=== PATIENT | female | born 1960 | race Caucasian/White ===

== ENCOUNTER 2017-02-08 12:10 | Emergency (ER) | payer OTHER ==
[~2017-02-08] VITALS: Ht 152.4 cm; Wt 84.8 kg
--- NOTE | ~2017-02-08 | CT71 ---
[facility] A Service [facility] RADIOLOGY TEXT RESULTS PATIENT: SANDOVAL FORMAN LOCATION: DENIZ : 58 UNIT #: [id number] AGE: [address]: Endy Burger MD SEX: F ORDER DR: [id number] [facility] [address] [facility]. [place], [place] [address] [id number] MR#: [id number] Acc #: [id number] NAME: SANDOVAL FORMAN : 1960 SEX: F STUDY DATE/TIME: 02/08/2017 16:55 UNIT: DENIZ ROOM: STUDY DESCRIPTION: CT Head Wo Contrast Attending Physician: Endy Burger Ordering Physician: Ed Claudio Rodriguez M.D. Primary Care Physician: Ange Bruno M.D. MEDICAL IMAGING REPORT This report is preliminary unless electronic signature is present EXAM Noncontrast head CT HISTORY Headaches x2 days, syncopal episode today. TECHNIQUE This CT exam was performed with one or more of the following radiation dose reduction techniques: automatic exposure control, adjustment of mA and/or kV according to patient size, and iterative reconstruction. FINDINGS Axial noncontrast images were obtained from the skull base to the vertex. Ventricular size and configuration are normal. There is no evidence of acute infarct or hemorrhage. There are no extra-axial fluid collections. No mass lesion or mass effect is seen. There are no skull fractures. IMPRESSION Normal noncontrast head CT. Dictated by... Ignacia Mathews M.D. THIS IS AN ELECTRONICALLY VERIFIED REPORT Ignacia Mathews M.D. at 02/09/2017 2:20 PM CHAR/milena TD: 02/08/2017 21:51 JOB #: [id number] MEDICAL IMAGING REPORT [facility] A Service [facility] RADIOLOGY TEXT RESULTS PATIENT: SANDOVAL FORMAN LOCATION: DENIZ : 58 UNIT #: [id number] AGE: [address]: Endy Burger MD SEX: F ORDER DR: Page 1 of 1 COPY
--- NOTE | ~2017-02-08 | EKG ---
PATIENT: SANDOVAL FORMAN UNIT #: [id number] Ventricular Rate: 65 BPM Atrial Rate: 65 BPM P-R Interval: 162 ms QRS Duration: 86 ms Q-T Interval: 404 ms QTC Calculation(Bezet): 420 ms P [place]: 49 degrees Calculated R [place]: -26 degrees Diagnosis Line: Normal sinus rhythm Diagnosis Line: Minimal voltage criteria for LVH, may be normal Diagnosis Line: variant Diagnosis Line: Nonspecific T wave abnormality Diagnosis Line: Borderline ECG Diagnosis Line: When compared with ECG of 16-APR-2014 11:11, Diagnosis Line: No significant change was found Diagnosis Line: Confirmed by ROMEO DENNEY MD ([id number]) on 02/09/2017 Diagnosis Line: 7:15:16 PM INTERPRETING MD: ОЛЕГ ZAMORA
[~2017-02-08 12:10] MED LIST: ALDACTAZIDE PO; LEXAPRO PO; LIOTHYRONINE; SYNTHROID PO; WATER PILL; [UNRECOGNIZED DRUG - OTHER]; [UNRECOGNIZED DRUG - OTHER]
[2017-02-08 13:52] LABS: ALBUMIN SERUM 4.1 g/dL (3.5-5.0); BILIRUBIN,TOTAL 0.6 mg/dL (0.2-2.0); BUN/CREATININE RATIO 22.85; CALCIUM SERUM 9.5 mg/dL (8.4-10.2); CREATININE SERUM 0.7 mg/dL (0.6-1.4); GLOM FILT RATE Estimated 96.2 mL/min (>60); POTASSIUM 4.2 mmol/L (3.5-5.1); PROTEIN TOTAL SERUM 7.6 g/dL (6.0-8.3)
[2017-02-08 14:43] LABS: HEMATOCRIT 41.9 % (35.0-45.0); HEMOGLOBIN 13.8 gm/dL (12.0-16.0); MEAN CELL VOLUME 85.1 FL (83-96); MEAN CORPUSCULAR HGB CONC 32.9 g/dL (30-36); PLATELET COUNT 227 X10e3 (140-420); RED BLOOD COUNT 4.93 X10e (3.90-5.30); RED CELL DISTRIBUTION WIDTH 14.1 % (11.0-15.5); WHITE BLOOD COUNT 10.7 X10e3 (4.0-10.5)
[2017-02-08 14:44] LABS: BASOPHIL# 0.2 X10e3 (0-0.3); BASOPHIL% 1.5 % (0-2.5); DIFF IND NO; EOSINOPHIL# 0.1 X10e3 (0-0.7); LYMPHOCYTE# 2.5 X10e3 (1.0-3.5); LYMPHOCYTE% 23.1 % (17.0-45.0); MEAN PLATELET VOLUME 9.6 FL (6.5-11.5); MONOCYTE# 0.6 X10e3 (0-1.0); MONOCYTE% 5.6 % (3.0-12.0); NEUTROPHIL# 7.4 X10e3 (1.5-7.1); NEUTROPHIL% 68.8 % (40-75)
[2017-02-08 15:12] LABS: POC - CKMB 1.2 ng/mL (0.0-7.9); POC - TROPONIN <0.05 ng/mL (<=0.05)
[2017-02-08 15:30] LABS: POC - CKMB 1.1 ng/mL (0.0-7.9); POC - TROPONIN <0.05 ng/mL (<=0.05)
[2017-02-08 16:00] LABS: URINE APPEARANCE CLEAR; URINE BILIRUBIN NEG (NEG); URINE BLOOD NEG (NEG); URINE COLOR YELLOW; URINE GLUCOSE NEG (NEG); URINE KETONE NEG (NEG); URINE LEUKOCYTE ESTERASE NEG (NEG); URINE NITRATE NEG (NEG); URINE PH 5.5 (5-8); URINE PROTEIN NEG (NEG); URINE SOURCE CLEAN CATCH; URINE SPECIFIC GRAVITY 1.008 (1.003-1.035); URINE UROBILINOGEN 0.2 MG/DL (NEG)
[2017-02-08 16:01] LABS: CULTURE INDICATED? NO
== END 2017-02-08 17:55 | disposition home or self-care (01) ==
LOC: CED 12:10
PROVIDERS: Emergency Medicine; Student in an Organized Health Care Education/Training Program
DX: R55 Syncope and collapse (principal); F32.9 Major depressive disorder, single episode, unspecified; Z90.710 Acquired absence of both cervix and uterus; Z90.49 Acquired absence of other specified parts of digestive tract
CPT/HCPCS: 36415; 70450; 80053; 81003; 82553; 84484; 85025; 93005; 96361; 96374; 96375; 99285; J1885; J2765

== ENCOUNTER → 2017-02-28 | Outpatient (CLI) | payer OTHER ==
--- NOTE | ~2017-02-28 | HM ---
Unit #: [id number] #: [id number] Patient: SANDOVAL FORMAN [id number] [address] [place], [place] [address] [id number] O MR#: [id number] NAME: SANDOVAL FORMAN : 1960 SEX: F STUDY DATE/TIME: 03/08/2017 UNIT: [facility] ROOM: STUDY DESCRIPTION: Holter monitor Attending Physician: Ange Bruno M.D. Referring Physician: Ange Bruno M.D. Primary Care Physician: Ange Bruno M.D. CARDIOLOGY REPORT EXAM Holter monitor. DATE APPLIED February 28, 2017. DATE SCANNED March 07, 2017. ORDERED BY Ange Bruno M.D. READ BY [facility], Ghassan Baez M.D. INDICATION Syncope. COMMENTS 1. Basic rhythm is normal sinus rhythm. Total beats 120,885. Average heart rate 84 per minute. Heart rate varies from 56 per minute at 11:35 to 161 per minute at 1960. 2. 171 isolated PVCs noted. 3. No significant atrial arrhythmias noted. 4. No high-degree AV blocks noted. 5. No diary with symptoms available. Dictated by... Aysha Zambrano/aric TD: 03/09/2017 09:14 JOB #: [id number] Unit #: [id number] #: [id number] Patient: SANDOVAL FORMAN CARDIOLOGY REPORT Page 1 of 1 X Ghassan Baez MD HOLTER MONITOR REPORT
--- NOTE | ~2017-02-28 | US37 ---
[facility] A Service of [facility] RADIOLOGY TEXT RESULTS PATIENT: SANDOVAL FORMAN LOCATION: [facility] : 58 UNIT #: [id number] AGE: [address]: Ange Bruno MD SEX: F ORDER DR: [id number] [facility] [address] [facility]. [place], [place] [address] [id number] O MR#: [id number] Acc #: [id number] NAME: SANDOVAL FORMAN : 1960 SEX: F STUDY DATE/TIME: 02/28/2017 10:58 UNIT: [facility] ROOM: STUDY DESCRIPTION: US Carotid W/Doppler Bilateral Attending Physician: Ange Bruno M.D. Referring Physician: Ange Bruno M.D. Ordering Physician: Ange Bruno M.D. Primary Care Physician: Ange Bruno M.D. MEDICAL IMAGING REPORT This report is preliminary unless electronic signature is present EXAM Carotid Doppler, 02/28/2017 CLINICAL HISTORY Dizziness and syncope and loss of balance with blurred vision for 3 months. PROCEDURE Nowak-scale imaging, color-Doppler flow imaging and Doppler waveform analysis. COMPARISON None. FINDINGS There is no nowak-scale identifiable plaque. There is antegrade flow in the common and internal and external carotid and vertebral arteries bilaterally. Right internal carotid peak systolic velocity is 1.28 m/sec with a brisk upstroke and moderate to marked spectral broadening. On the left, internal carotid peak systolic velocity is 1.30 m/sec with a brisk upstroke and mild spectral broadening. IMPRESSION 1. 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 2. Antegrade flow demonstrated in both common and external carotid and vertebral arteries. [facility] A Service [facility] RADIOLOGY TEXT RESULTS PATIENT: SANDOVAL FORMAN LOCATION: [facility] : 58 UNIT #: [id number] AGE: [address]: Ange Bruno MD SEX: F ORDER DR: Dictated by... Napoleon Frey M.D. THIS IS AN ELECTRONICALLY VERIFIED REPORT Napoleon Frey M.D. at 03/04/2017 7:33 AM FRANSISCO/milena TD: 03/01/2017 01:42 JOB #: [id number] MEDICAL IMAGING REPORT Page 1 of 1 COPY
== END | disposition home or self-care (01) ==
LOC: CECH 09:48
DX: R55 Syncope and collapse (principal); I36.1 Nonrheumatic tricuspid (valve) insufficiency; I51.89 Other ill-defined heart diseases
CPT/HCPCS: 93225; 93226; 93306; 93880